=== PATIENT | female | born 1960 ===

== ENCOUNTER 2025-09-15 07:22 | Day surgery (SDC) | payer OTHER ==
--- NOTE | 2025-09-12 11:34 | RAD REPORT ---
Procedure: Chest Pa And Lat (2 Views) HISTORY: Preop for colonoscopy. COMPARISON: none FINDINGS: The lungs appear clear of acute infiltrate. No significant pleural effusion noted. The heart is normal size. IMPRESSION: No acute abnormality is displayed.
[2025-09-15] MEDS: Ringers Lactate 1,000 ML IV ONE (07:50)
[2025-09-15] MEDS ORDERED: SUCCINYLCHOLINE 20 MG/ML (10 ML) IV ONE (08:47)
[2025-09-15] MEDS ORDERED: FENTANYL CITR 100 MCG/2 ML ONE (08:51)
[2025-09-15] MEDS ORDERED: LIDOCAINE 1% MPF 5 ML VIAL ONE (08:51)
[2025-09-15] MEDS ORDERED: EPHEDRINE SULF 50 MG/ML VIAL ONE (09:32)
[2025-09-15 10:34] VITALS: BP 111/88; TEMP 97.5; O2SAT 100
== END 2025-09-15 10:27 | disposition home or self-care (01) ==
LOC: OR 07:22
PROVIDERS: ATTEND Surgery
PROC: 0DJD8ZZ Inspection of Lower Intestinal Tract, Via Natural or Artificial Opening Endoscopic (ICD-10-PCS; principal; 2025-09-15 09:00)
DX: Z12.11 Encounter for screening for malignant neoplasm of colon (principal); K64.4 Residual hemorrhoidal skin tags; Z80.0 Family history of malignant neoplasm of digestive organs; Z83.719 Family history of colon polyps, unspecified
CPT/HCPCS: 93005; 71046; J2704; J2003; J7120; J0330; J3010